=== PATIENT | female | born 1980 | race Caucasian/White ===

== ENCOUNTER → 2020-08-27 09:28 | Outpatient (CLI) | payer SELFPAY | PROVIDERS: Visit Provider Physician Assistant | DX: R30.0 Dysuria (principal) | CPT/HCPCS: 87086 ==

== ENCOUNTER → 2020-12-30 18:30 | Outpatient (CLI) | payer OTHER, SELFPAY ==
[2020-12-30 19:49] LABS: COVID19 -Nasal RAPID Negative (Negative)
== END ==
PROVIDERS: Visit Provider Physician Assistant
DX: Z20.822 Contact with and (suspected) exposure to COVID-19 (principal)
CPT/HCPCS: 87635

== ENCOUNTER → 2021-03-02 07:58 | Outpatient (CLI) | payer OTHER, SELFPAY ==
[2021-03-02 08:41] LABS: COVID19 -Nasal RAPID Negative (Negative)
== END ==
PROVIDERS: Visit Provider Physician Assistant
DX: Z20.822 Contact with and (suspected) exposure to COVID-19 (principal); R05.9 Cough, unspecified; R09.81 Nasal congestion
CPT/HCPCS: 87635

== ENCOUNTER 2021-08-28 11:00 | Emergency (ER) | payer OTHER, SELFPAY ==
[2021-08-28] VITALS (36 sets, daily range): BP systolic 109–136; BP diastolic 61–80; PULSE 67–94; RESP 11–25; TEMP 36.8; O2SAT 98–100; BMI 30.9
--- NOTE | 2021-08-28 11:04 | DI.CT.S_ITS ---
PROCEDURE: CT ANGIO HEAD AND NECK INDICATIONS: left eye hemniopsia TECHNIQUE: After the administration of intravenous contrast, 1 mm thick sections acquired from the aortic arch through the [place] of [place]. Post-contrast 4.5 mm thick sections then re-acquired from the foramen magnum to the vertex. For radiation dose reduction, the following was used: automated exposure control, adjustment of mA and/or kV according to patient size. COMPARISON: None. FINDINGS: HEAD CT ANGIOGRAPHY: Anterior circulation: Intracranial internal carotid arteries are normal in size and flow. The flow within the paired anterior cerebral arteries is normal and symmetric. The flow within the middle cerebral arteries is normal and symmetric. The anterior communicating artery is seen. No aneurysms are seen. Posterior circulation: Visualized portions of the vertebral arteries demonstrate normal caliber, and join to form a normal appearing basilar artery. Flow within the posterior cerebral arteries is normal and symmetric. No aneurysms are seen. NECK CT ANGIOGRAPHY: Carotid system: The great vessels demonstrate a conventional anatomy as they arise from the aortic arch. The origins of the common carotid arteries appear patent. The common carotid arteries demonstrate normal caliber and courses. The bifurcation regions are both widely patent. The internal carotid arteries demonstrate normal calibers and courses. Posterior circulation: The origins of the vertebral arteries both appear widely patent. The more superior extracranial portions of both vertebral arteries also demonstrate normal courses and calibers. They join to form a normal appearing basilar artery. Left vertebral artery arises directly from the aortic arch, an anatomic variant. Soft tissues: Visualized neck soft tissues demonstrate no suspicious abnormalities. Bones: No suspicious bony lesions. Visualized cervical spine appears normally aligned. IMPRESSION: Normal CT angiogram the head and neck without evidence of large vessel occlusion, aneurysm or vascular malformation. Any quantitative measurements of stenosis were performed using NASCET criteria. Approved by: Antonio Valentino M.D. on 08/28/2021 at 10:49
--- NOTE | 2021-08-28 11:04 | DI.CT.S_ITS ---
PROCEDURE: CT STROKE INDICATIONS: left eye hemianopia TECHNIQUE: Noncontrast 5 mm thick angled axial sections acquired from the foramen magnum to the vertex, with coronal reformats. For radiation dose reduction, the following was used: automated exposure control, adjustment of mA and/or kV according to patient size. COMPARISON: None. FINDINGS: Image quality: Excellent. CSF spaces: Basal cisterns are patent. No extra-axial fluid collections. Ventricles are normal in size and shape. Brain: No midline shift. No intracranial masses or hemorrhage. [place]mal[place]-white matter interface is normal. Skull and face: Calvarium and visualized facial bones are intact, without suspicious lesions. Sinuses: Visualized sinuses and mastoids are clear. IMPRESSION: Normal CT of the brain This study fulfills neurological imaging criteria for inclusion or exclusion of acute stroke therapies based on available published neurological imaging guidelines. Note: Critical results were discussed with Dr. Spencer at 10:42 AM [place] time on 08/28/21 Approved by: Antonio Valentino M.D. on 08/28/2021 at 10:42
[2021-08-28] MEDS: ONDANSETRON 4 MG/2 ML INJ IV (11:10)
[2021-08-28 11:11] LABS: Add Manual Diff / Slide Review NO; Basophils Absolute Auto 0 /uL (0-100); Basophils Percent Auto 0.3 % (0-2); Eosinophils Absolute Auto 200 /uL (0-450); Eosinophils Percent Auto 2.4 % (2-4); Hematocrit 36.4 % (36-46); Hemoglobin 12.6 g/dL (12.0-16.0); Lymphocytes Absolute Auto 2600 /uL (1100-4500); Lymphocytes Percent Auto 38.6 % (25-40); Mean Corpuscular HGB Conc 34.6 % (30-36); Mean Corpuscular Hemoglobin 30.9 PG (26-34); Mean Corpuscular Volume 89.3 fL (80-100); Monocytes Absolute Auto 600 /uL (0-900); Monocytes Percent Auto 9.8 % (3-14); Neutrophils Absolute Auto 3200 /uL (1500-7000); Neutrophils Percent Auto 48.9 % (50-75); Platelet Count 264 X10^3/uL (150-400); Red Blood Cell Count 4.08 X10^6/uL (4.0-5.2); Red Cell Distribution Width 13.4 % (11.6-14.8); White Blood Cell Count 6.6 X10^3/uL (4.5-11.0)
[2021-08-28 11:24] LABS: Alanine Aminotransferase 29 IU/L (<35); Albumin 4.2 g/dL (3.5-5.0); Albumin Globulin Ratio 1.3 (1.0-2.8); Alkaline Phosphatase 56 U/L (38-126); Aspartate Aminotransferase 38 IU/L (14-36); BUN Creatinine Ratio 16.7 (6-22); Bilirubin Total 0.5 mg/dL (0.2-1.3); Blood Urea Nitrogen 15 mg/dL (7-17); Calcium 8.7 mg/dL (8.4-10.2); Carbon Dioxide 25 mmol/L (22-32); Chloride 105 mmol/L (98-107); Creatine Kinase 72 U/L (30-135); Estimated Glomerular Filt Rate > 60 mL/min (>60); Globulin 3.2 g/dL (1.7-4.1); Glucose 135 mg/dL (70-100); HEMOLYSIS 40 (0-50); Potassium 3.5 mmol/L (3.4-5.1); Sodium 137 mmol/L (137-145); Total Protein 7.4 g/dL (6.3-8.2)
[2021-08-28] MEDS: SODIUM CHLORIDE 0.9% 1,000 ML 150 ML IV (11:32)
--- NOTE | 2021-08-28 11:34 | ED_ITS ---
HPI - Neuro Symptoms/Deficit General Chief Complaint: Neuro Symptoms/Deficit Stated Complaint: eye/stroke problems Time Seen by Provider: 08/28/21 11:03 Source: patient Mode of arrival: Family Vehicle History of Present Illness HPI Narrative: Patient is a healthy 41-year-old female who presents with left eye blurry vision. She states that there is a line down the center of her vision and blurry peripherally. She does not have loss of vision. She does not have headache. She is currently at work while this is happening. She says she just feels off and can not place finger on it. She was previously feeling well. No fever chills. No chest pain or palpitations. No numbness tingling or weakness. She denies any flashers or floaters no lightening rods On Anticoagulants: No Related Data Previous Rx's Medication Instructions Recorded meclizine 25 mg tablet 25 mg PO TID PRN #10 tab 08/28/21 Allergies Allergy/AdvReac Type Severity Reaction Status Date / Time Cephalosporins Allergy Severe Anaphylaxis Verified 12/30/20 18:34 Penicillins Allergy Severe Anaphylaxis Verified 12/30/20 18:34 Sulfa (Sulfonamide Allergy Intermediate Rash Verified 12/30/20 18:34 Antibiotics) Review of Systems Review of Systems Narrative: GENERAL: Denies chills, fatigue, malaise, fever, sweats, travel HEENT: See HPI RESPIRATORY: Denies dyspnea, cough, wheezing, hemoptysis, sputum. CARDIOVASCULAR: Denies chest pain, palpitations, orthopnea, edema GASTROINTESTINAL: Denies nausea, vomiting, abdominal pain, diarrhea, constipation, melena. : Denies dysuria, frequency, incontinence, hematuria, urinary retention, flank pain. MUSCULOSKELETAL: Denies weakness, joint pain, or bony pain SKIN: No rash, no erythema, no pruritus NEUROLOGIC: See HPI PSYCHIATRIC: No concerning psychosocial issues. 12 point review of systems is negative except for those stated above and HPI Hematologic/Lymphatic On Anticoagulants: No Patient History Medical History No active medical problems Social History Smoking Status: Never smoker Smoking Status: Never smoker alcohol intake frequency: 0-2 drinks per day Substance Use Type: does not use Exam Initial Vital Signs Initial Vital Signs: Vital Signs Pulse Rate 89 08/28/21 11:04 Respiratory Rate 25 H 08/28/21 11:04 GENERAL: Alert well-appearing 41-year-old female and in no acute distress. HEENT: Head atraumatic,EOMI, pupils reactive, no nystagmus face symmetric, moist mucous membranes Bedside ophthalmology ultrasound done by myself does not show any obvious vitreous humor retinal detachment CARDIOVASCULAR: Regular rate and rhythm without murmurs, rubs or gallops. RESPIRATORY: Breath sounds equal bilaterally, no wheezes rales or rhonchi. ABDOMEN: Soft, nontender. Normoactive bowel sounds all 4 quadrants. No guarding or rebound. EXTREMITIES: Normal range of motion, no clubbing or edema. Neurovascularly intact NEUROLOGICAL: Alert and oriented x4.Normal gait and speech. Cranial nerves II through XII grossly intact. Good vaanpl-bl-ymoi, unable to do heel to arnold with right leg strength equal bilaterally, no dysarthria or aphasia, sensation in tact to soft touch bilaterally, no visual changes, no facial droop SKIN: Warm, dry, no laceration, no petechiae, no rashes or lesions. Scores NIH Stroke Scale Level of Conciousness: Alert, keenly responsive Ask month/age: Answers both questions correctly. Open/close eyes, close hand: Performs both tasks correctly Best gaze horizontal: Normal Visual byrne: Partial hemianopia (blurry not loss) Facial palsy: Normal symetrical movement Left arm drift: No drift for full 10 sec Right arm drift: No drift for full 10 sec Left leg drift: No drift for full 5 sec Right leg drift: No drift for full 5 sec Limb ataxia: Present in one limb Sensory on face/arms/legs: Normal, no sensory loss Best language: No aphasia, normal Dysarthria: Normal Extinction or inattention: No abnormality Total NIH Stroke scale score: 2 Course Orders Ordered: Discontinued Medications Sodium Chloride (Normal Saline 0.9%) 1,000 mls @ 150 mls/hr IV CONT JUSTYNA Last Infusion: 08/28/21 18:30 Dose: 0 mls/hr Documented by: Admin: 08/28/21 11:32 Dose: 150 mls/hr Documented by: BINH Meclizine HCl (Meclizine Hcl 12.5 Mg Tablet) 25 mg PO NOW ONE Stop: 08/28/21 11:47 Last Admin: 08/28/21 11:58 Dose: 25 mg Documented by: RENETTA Meclizine HCl (Meclizine Hcl 12.5 Mg Tablet) 25 mg PO NOW ONE Stop: 08/28/21 19:32 Last Admin: 08/28/21 19:42 Dose: 25 mg Documented by: BINH Ondansetron HCl (Ondansetron 4 Mg/2 Ml Inj) 4 mg IV NOW ONE Stop: 08/28/21 11:04 Last Admin: 08/28/21 11:10 Dose: 4 mg Documented by: BINH Vital Signs Vital signs: Vital Signs - 8 hr 08/28/21 11:21 Temperature 98.2 F Pulse Rate 84 Respiratory Rate 19 Blood Pressure 136/66 Pulse Oximetry 98 MDM - Neuro Symptoms/Deficit Lab Data Result diagrams: 08/28/21 11:02 08/28/21 11:02 Labs: Lab Results 08/28/21 08/28/21 08/28/21 Range/Units 11:02 11:02 11:02 WBC 6.6 (4.5-11.0) X10^3/uL RBC 4.08 (4.0-5.2) X10^6/uL Hgb 12.6 (12.0-16.0) g/dL Hct 36.4 (36-46) % MCV 89.3 (80-100) fL MCH 30.9 (26-34) PG MCHC 34.6 (30-36) % RDW 13.4 (11.6-14.8) % Plt Count 264 (150-400) X10^3/uL Neut % (Auto) 48.9 L (50-75) % Lymph % (Auto) 38.6 (25-40) % [place] % (Auto) 9.8 (3-14) % Eos % (Auto) 2.4 (2-4) % Baso % (Auto) 0.3 (0-2) % Neut # (Auto) 3200 (7054-0909) /uL Lymph # (Auto) 2600 (0743-5844) /uL [place] # (Auto) 600 (0-900) /uL Eos # (Auto) 200 (0-450) /uL Baso # (Auto) 0 (0-100) /uL Sodium 137 (137-145) mmol/L Potassium 3.5 (3.4-5.1) mmol/L Chloride 105 (98-107) mmol/L Carbon Dioxide 25 (22-32) mmol/L BUN 15 (7-17) mg/dL Creatinine 0.90 (0.52-1.04) mg/dL Estimated GFR > 60 (>60) mL/min BUN/Creatinine Ratio 16.7 (6-22) Glucose 135 H (70-100) mg/dL Calcium 8.7 (8.4-10.2) mg/dL Total Bilirubin 0.5 (0.2-1.3) mg/dL AST 38 H (14-36) IU/L ALT 29 (<35) IU/L Alkaline Phosphatase 56 (38-126) U/L Total Creatine Kinase 72 (30-135) U/L CK-MB (CK-2) TNP CK-MB (CK-2) Rel Index TNP Troponin I < 0.012 (0.01-0.034) ng/mL Total Protein 7.4 (6.3-8.2) g/dL Albumin 4.2 (3.5-5.0) g/dL Globulin 3.2 (1.7-4.1) g/dL Albumin/Globulin Ratio 1.3 (1.0-2.8) Serum , Qual Negative (Negative) Urine Color Urine Appearance Urine pH (4.5-8.0) Ur Specific [place] (1.000-1.035) Urine Protein (Negative) Urine Glucose (UA) (Negative) g/dL Urine Ketones (NEGATIVE) Urine Occult Blood (Negative) Urine Nitrate (Negative) Urine Bilirubin (NEGATIVE) Urine Urobilinogen (0.2) E.U./dL Ur Leukocyte Esterase (NEGATIVE) Urine RBC (0-5/HPF) Urine WBC (0-5/HPF) Ur Squamous Epith Cells (0-5/HPF) Urine Bacteria (None) Ur Culture Indicated? U Opiates 300ng/mL cut (Negative) Ur Oxycodone Screen (Negative) Urine Methadone Screen (Negative) Ur Barbiturates Screen (Negative) U Tricyclic Antidepress (Negative) Ur Phencyclidine Scrn (Negative) Ur Amphetamines Screen (Negative) U Methamphetamines Scrn (Negative) Ur MDMA Scrn (Ecstasy) (Negative) U Benzodiazepines Scrn (Negative) Urine Cocaine Screen (Negative) U Marijuana (THC) Screen (Negative) SARS-CoV-2 (PCR) (Negative) 08/28/21 08/28/21 08/28/21 Range/Units 11:02 11:40 13:18 WBC (4.5-11.0) X10^3/uL RBC (4.0-5.2) X10^6/uL Hgb (12.0-16.0) g/dL Hct (36-46) % MCV (80-100) fL MCH (26-34) PG MCHC (30-36) % RDW (11.6-14.8) % Plt Count (150-400) X10^3/uL Neut % (Auto) (50-75) % Lymph % (Auto) (25-40) % [place] % (Auto) (3-14) % Eos % (Auto) (2-4) % Baso % (Auto) (0-2) % Neut # (Auto) (1598-0310) /uL Lymph # (Auto) (7823-6762) /uL [place] # (Auto) (0-900) /uL Eos # (Auto) (0-450) /uL Baso # (Auto) (0-100) /uL Sodium (137-145) mmol/L Potassium (3.4-5.1) mmol/L Chloride (98-107) mmol/L Carbon Dioxide (22-32) mmol/L BUN (7-17) mg/dL Creatinine (0.52-1.04) mg/dL Estimated GFR (>60) mL/min BUN/Creatinine Ratio (6-22) Glucose (70-100) mg/dL Calcium (8.4-10.2) mg/dL Total Bilirubin (0.2-1.3) mg/dL AST (14-36) IU/L ALT (<35) IU/L Alkaline Phosphatase (38-126) U/L Total Creatine Kinase (30-135) U/L CK-MB (CK-2) CK-MB (CK-2) Rel Index Troponin I (0.01-0.034) ng/mL Total Protein (6.3-8.2) g/dL Albumin (3.5-5.0) g/dL Globulin (1.7-4.1) g/dL Albumin/Globulin Ratio (1.0-2.8) Serum , Qual (Negative) Urine Color Yellow Urine Appearance Clear Urine pH 7.0 (4.5-8.0) Ur Specific [place] <=1.005 (1.000-1.035) Urine Protein Negative (Negative) Urine Glucose (UA) Negative (Negative) g/dL Urine Ketones Negative (NEGATIVE) Urine Occult Blood Negative (Negative) Urine Nitrate Negative (Negative) Urine Bilirubin Negative (NEGATIVE) Urine Urobilinogen 0.2 (0.2) E.U./dL Ur Leukocyte Esterase Negative (NEGATIVE) Urine RBC None seen (0-5/HPF) Urine WBC 0-1/hpf (0-5/HPF) Ur Squamous Epith Cells 5-10 /hpf H (0-5/HPF) Urine Bacteria Few (2-10) H (None) Ur Culture Indicated? Cult not indicated U Opiates 300ng/mL cut Negative (Negative) Ur Oxycodone Screen Negative (Negative) Urine Methadone Screen Negative (Negative) Ur Barbiturates Screen Negative (Negative) U Tricyclic Antidepress Negative (Negative) Ur Phencyclidine Scrn Negative (Negative) Ur Amphetamines Screen Negative (Negative) U Methamphetamines Scrn Negative (Negative) Ur MDMA Scrn (Ecstasy) Negative (Negative) U Benzodiazepines Scrn Negative (Negative) Urine Cocaine Screen Negative (Negative) U Marijuana (THC) Screen Negative (Negative) SARS-CoV-2 (PCR) Negative (Negative) Point of Care Testing Glucose POC [address] scan - head: Radiologist's Impression: nt: Emily Mckinley MR#: [id number] : 1980 Acct:[id number] Age/Sex: 41 / F Date of Service: 08/28/21 Loc: ED Accession Number: [id number] ?? Procedure: CT Stroke Ordering Provider: Yessenia Spencer D.O. PROCEDURE:? CT STROKE ? INDICATIONS:? left eye hemianopia ? TECHNIQUE:? Noncontrast 5 mm thick angled axial sections acquired from the foramen magnum to the vertex, with coronal reformats.? For radiation dose reduction, the following was used:? automated exposure control, adjustment of mA and/or kV according to patient size.? ? COMPARISON:? None. ? FINDINGS:? Image quality:? Excellent.? ? CSF spaces:? Basal cisterns are patent.? No extra-axial fluid collections.? Ventricles are normal in size and shape.? ? Brain:? No midline shift.? No intracranial masses or hemorrhage.? [place]-white matter interface is normal.? ? Skull and face:? Calvarium and visualized facial bones are intact, without suspicious lesions.? ? Sinuses:? Visualized sinuses and mastoids are clear.? ? IMPRESSION:? Normal CT of the brain ? This study fulfills neurological imaging criteria for inclusion or exclusion of acute stroke therapies based on available published neurological imaging guidelines.? ? ? Note:? Critical results were discussed with Dr. Spencer at 10:42 AM [place] time on 08/28/21 ? Approved by: Antonio Valentino M.D. on 08/28/2021 at 10:42? CTA - brain/neck: Radiologist's Impression: atient: Emily Mckinley MR#: [id number] : 1980 Acct:[id number] Age/Sex: 41 / F Date of Service: 08/28/21 Loc: ED Accession Number: [id number] ?? Procedure: CT angio head and neck Ordering Provider: Yessenia Spencer D.O. PROCEDURE:? CT ANGIO HEAD AND NECK ? INDICATIONS:? left eye hemniopsia ? TECHNIQUE:? ? After the administration of intravenous contrast, 1 mm thick sections acquired from the aortic arch through the [place] of [place].? Post-contrast 4.5 mm thick sections then re-acquired from the foramen magnum to the vertex.? For radiation dose reduction, the following was used:? automated exposure control, adjustment of mA and/or kV according to patient size.? ? COMPARISON:? None. ? FINDINGS:? ? HEAD CT ANGIOGRAPHY:? Anterior circulation:? Intracranial internal carotid arteries are normal in size and flow.? The flow within the paired anterior cerebral arteries is normal and symmetric.? The flow within the middle cerebral arteries is normal and symmetric.? The anterior communicating artery is seen.? No aneurysms are seen.? ? Posterior circulation:? Visualized portions of the vertebral arteries demonstrate normal caliber, and join to form a normal appearing basilar artery.? Flow within the posterior cerebral arteries is normal and symmetric.? No aneurysms are seen.? ? NECK CT ANGIOGRAPHY:? Carotid system:? The great vessels demonstrate a conventional anatomy as they arise from the aortic arch.? The origins of the common carotid arteries appear patent.? The common carotid arteries demonstrate normal caliber and courses.? The bifurcation regions are both widely patent.? The internal carotid arteries demonstrate normal calibers and courses.? ? Posterior circulation:? The origins of the vertebral arteries both appear widely patent.? The more superior extracranial portions of both vertebral arteries also demonstrate normal courses and calibers.? They join to form a normal appearing basilar artery.? Left vertebral artery arises directly from the aortic arch, an anatomic variant. ? Soft tissues:? Visualized neck soft tissues demonstrate no suspicious abnormalities.? ? Bones:? No suspicious bony lesions.? Visualized cervical spine appears normally aligned.? IMPRESSION:? ? Normal CT angiogram the head and neck without evidence of large vessel occlusion, aneurysm or vascular malformation. ? Any quantitative measurements of stenosis were performed using NASCET criteria.? Approved by: Antonio Valentino M.D. on 08/28/2021 at 10:49? MR head: Radiologist's Impression: tient: Emily Mckinley MR#: [id number] : 1980 Acct:[id number] Age/Sex: 41 / F Date of Service: 08/28/21 Loc: ED Accession Number: [id number] ?? Procedure: MR head/brain wo con Ordering Provider: Yessenia Spencer D.O. PROCEDURE:? MR HEAD/BRAIN WO CON ? INDICATIONS:? right leg weakness, dizzy ? TECHNIQUE:? Noncontrast axial T1 spin echo, axial T2 fast spin echo, sagittal and axial FLAIR, coronal T2 fast spin echo, axial gradient echo, axial diffusion and ADC through the brain.? ? COMPARISON:? [facility], CT, CT ANGIO HEAD AND NECK, 08/28/2021, 11:10. ? FINDINGS:? Image quality:? Excellent.? ? CSF Spaces:? Basal cisterns are patent.? No extra-axial fluid collections.? Ventricles are normal in size and shape.? ? Brain:? No intracranial masses or hemorrhage.? [place]/white matter interface is normal.? Brainstem appears normal.? Diffusion-weighted images demonstrate no acute ischemic insult.? No chronic ischemic insults.? Normal intravascular flow voids are pre sent.? ? Skull and face:? Calvarium has normal marrow signal.? Orbits appear normal.? ? Sinuses:? Sinuses and mastoids are clear.? ? IMPRESSION:? Unremarkable brain MRI.? Normal brain parenchyma.? No evidence of acute stroke, hemorrhage, or mass. ? ? Dictated by: Prasanth Fallon M.D. on 08/28/2021 at 16:48 ? ? Approved by: Prasanth Fallon M.D. on 08/28/2021 at 16:49? ECG Data Interpretation: Normal sinus rhythm rate 79 FL interval 140 QRS [address] changes or T- wave inversions no priors to come MDM Narrative Medical decision making narrative: Patient's symptoms are a bit she does not have loss of vision but there is a vertical line in her visual field that is blurry. She is also having some ataxia and dysmetria specially in her right leg. She suddenly actually started feeling extremely dizzy as well. Concern for possible posterior CVA.. Head CT and CT angio were both negative 1130 Dr Leonardo, stroke doctor has been updated patient's symptoms test results reviewed scans. At this time does not recommend tPA symptoms are a bit odd possibly atypical migraine. Recommends treating migraine, re-evaluate and possible MRI Patient does not really want anything for pain. She is given meclizine and Zofran. She says it makes her sleepy. She continues to have some ataxia. Fortunately MRI is negative. She is able to stand now feels significantly better but still a little bit off. Probably vertigo atypical migraine. She is given meclizine to go home. Discharge Plan Departure Patient Disposition: Home Clinical Impression: Vertigo, Atypical migraine Instructions: Vertigo, Migraine -- Adult Activity Restrictions/Additional Instructions: *You have been diagnosed with vertigo, atypical migraine *What to do: You need to take the next few days off work. You need to rest. You need to take care of yourself. You need to go on a hike. *Continue to take medications as directed Meclizine 25 mg every 8 hours if needed for dizziness Zofran as directed *Follow up with your primary care provider in 2-3 days or call [phone] *Return to ER if you should have persistent vertigo, numbness, tingling, weakness, persistent vomiting or any new, worsening or concerning symptoms Prescriptions: New meclizine 25 mg tablet 25 mg PO TID PRN (Reason: dizziness) Qty: 10 0RF Referrals: Jossy Tyson MD [Primary Care Provider] -
[2021-08-28 11:36] LABS: Pregnancy Test Serum,Qual Negative (Negative); Troponin I < 0.012 ng/mL (0.01-0.034)
[2021-08-28] MEDS: MECLIZINE HCL 12.5 MG TABLET 25 MG PO ×2 (11:58→19:42)
[2021-08-28 12:00] LABS: UR Morphine/Opiate cutoff 300 Negative (Negative); Ur Creatinine Normal (Normal); Ur Specific Gravity Normal (Normal); Urine Amphetamines Negative (Negative); Urine Barbiturates Negative (Negative); Urine Benzodiazepines Negative (Negative); Urine Cocaine Negative (Negative); Urine MDMA Negative (Negative); Urine Methadone Negative (Negative); Urine Methamphetamines Negative (Negative); Urine Oxycodone Negative (Negative); Urine Phencyclidine Negative (Negative); Urine Tetrahydrocannabinol Negative (Negative); Urine Tricyclic Antidepressant Negative (Negative); Urine pH Normal (Normal)
[2021-08-28 12:56] LABS: Appearance Urine UA CLEAR; Bilirubin Urine UA NEGATIVE (NEGATIVE); Color Urine UA YELLOW; Glucose Urine UA NEGATIVE (Negative); Ketones Urine UA NEGATIVE (NEGATIVE); Leukocyte Esterase Urine UA NEGATIVE (NEGATIVE); Nitrite Urine UA NEGATIVE (Negative); Occult Blood Urine UA NEGATIVE (Negative); Protein Urine UA NEGATIVE (Negative); Specific Gravity Urine UA <=1.005 (1.000-1.035); Urobilinogen Urine UA 0.2 E.U./dL (0.2)
[2021-08-28 13:02] LABS: Bacteria Urine Few (2-10); Culture Indicated Urine Cult Not Indicated; RBC Urine None Seen (0-5/HPF); Squamous Epithelial Cell Urine 5-10 /HPF (0-5/HPF); WBC Urine 0-1/HPF (0-5/HPF)
[2021-08-28 13:42] LABS: COVID19 -Nasal RAPID Negative (Negative)
--- NOTE | 2021-08-28 13:51 | DI.MRI.S_ITS ---
PROCEDURE: MR HEAD/BRAIN WO CON INDICATIONS: right leg weakness, dizzy TECHNIQUE: Noncontrast axial T1 spin echo, axial T2 fast spin echo, sagittal and axial FLAIR, coronal T2 fast spin echo, axial gradient echo, axial diffusion and ADC through the brain. COMPARISON: [facility], CT, CT ANGIO HEAD AND NECK, 08/28/2021, 11:10. FINDINGS: Image quality: Excellent. CSF Spaces: Basal cisterns are patent. No extra-axial fluid collections. Ventricles are normal in size and shape. Brain: No intracranial masses or hemorrhage. [place]/white matter interface is normal. Brainstem appears normal. Diffusion-weighted images demonstrate no acute ischemic insult. No chronic ischemic insults. Normal intravascular flow voids are present. Skull and face: Calvarium has normal marrow signal. Orbits appear normal. Sinuses: Sinuses and mastoids are clear. IMPRESSION: Unremarkable brain MRI. Normal brain parenchyma. No evidence of acute stroke, hemorrhage, or mass. Dictated by: Prasanth Fallon M.D. on 08/28/2021 at 16:48 Approved by: Prasanth Fallon M.D. on 08/28/2021 at 16:49
== END 2021-08-28 19:45 | disposition home or self-care (01) ==
PROVIDERS: Emergency Provider Emergency Medicine; PCP Student in an Organized Health Care Education/Training Program
DX: G43.009 Migraine without aura, not intractable, without status migrainosus (principal); R42 Dizziness and giddiness; Z20.822 Contact with and (suspected) exposure to COVID-19
CPT/HCPCS: 36415; 70450; 70496; 70498; 70551; 80053; 80305; 81001; 82550; 82962; 84484; 84703; 85025; 87635; 93005; 93010; 96361; 96374; 99285; C9803; Q3014; J2405; Q9967

== ENCOUNTER → 2021-10-30 06:49 | Outpatient (CLI) | payer OTHER, SELFPAY ==
[2021-10-30 15:26] LABS: Clostridium Difficile Tox PCR Negative for C. diff (Negative)
== END ==
PROVIDERS: PCP Student in an Organized Health Care Education/Training Program; Referring Provider Family Medicine; Visit Provider Family Medicine
DX: R19.7 Diarrhea, unspecified (principal)
CPT/HCPCS: 87045; 87329; 87493; 87899

== ENCOUNTER 2022-05-15 13:06 | Emergency (ER) | payer OTHER, SELFPAY ==
[2022-05-15 13:10] VITALS: BP 127/79; PULSE 74; RESP 16; TEMP 37.1; O2SAT 99; BMI 28.3
[2022-05-15 15:00] LABS: Alanine Aminotransferase 22 IU/L (<35)
--- NOTE | 2022-05-15 15:13 | ED.GENADULT ---
HPI - General Adult <Charlene Glaser PA-C - Last Filed: 05/15/22 16:53> General Chief complaint: Blood/Body fluid exposure Stated complaint: Needle Poke Time Seen by Provider: 05/15/22 13:14 Source: patient Mode of arrival: Ambulatory History of Present Illness HPI narrative: Patient is presenting for evaluation of IV needle stick. She reports that when withdrawing the IV needle the safety button was stuck and she inadvertently stuck the lateral side of her right thumb. She says that she washed it with soap and water afterwards and squeeze some blood out of it. Blood has been drawn on the source patient to check for hepatitis-B in addition to HIV. Are patient reports she has been vaccinated with hepatitis-B, and was reactive to it. We have drawn her hepatitis-B levels as well as HIV. She reports allergies to penicillin cephalosporins, and she can not take Triptan. She reports minor pain in her thumb from the needlestick, but she says it is not interfering with her work. Related Data Previous Rx's Medication Instructions Recorded meclizine 25 mg tablet 25 mg PO TID PRN dizziness #10 tabs 08/28/21 Allergies Allergy/AdvReac Type Severity Reaction Status Date / Time Cephalosporins Allergy Severe Anaphylaxis Verified 12/30/20 18:34 Penicillins Allergy Severe Anaphylaxis Verified 12/30/20 18:34 Sulfa (Sulfonamide Allergy Intermediate Rash Verified 12/30/20 18:34 Antibiotics) Review of Systems <Charlene Glaser PA-C - Last Filed: 05/15/22 16:53> Review of Systems Narrative: per HPI Patient History <ANDREI Benson Last Filed: 05/15/22 16:53> Medical History No active medical problems Social History Smoking Status: Never smoker Smoking Status: Never smoker alcohol intake frequency: 0-2 drinks per day Substance Use Type: does not use Exam <Charlene Glaser PA-C - Last Filed: 05/15/22 16:53> Narrative Exam Narrative: GENERAL: 42 year old patient appears stated age. Well-developed patient, in no distress. HEAD: Atraumatic. Normocephalic. EYES: No scleral icterus. No injection or drainage. . NEURO: AOx3. SKIN: No rash or erythema of visible areas. Small puncture in lateral side of right thumb. No bleeding at present time. Initial Vital Signs Initial Vital Signs: Vital Signs Temperature 98.7 F 05/15/22 13:10 Pulse Rate 74 05/15/22 13:10 Respiratory Rate 16 05/15/22 13:10 Blood Pressure 127/79 05/15/22 13:10 Pulse Oximetry 99 05/15/22 13:10 Oxygen Delivery Method 05/15/22 13:10 <Ryan Middleton DO - Last Filed: 05/15/22 17:47> Initial Vital Signs Initial Vital Signs: Vital Signs Temperature 98.7 F 05/15/22 13:10 Pulse Rate 74 05/15/22 13:10 Respiratory Rate 16 05/15/22 13:10 Blood Pressure 127/79 05/15/22 13:10 Pulse Oximetry 99 05/15/22 13:10 Oxygen Delivery Method 05/15/22 13:10 Course <Charlene Glaser PA-C - Last Filed: 05/15/22 16:53> Vital Signs Vital signs: Vital Signs - 8 hr 05/15/22 13:10 Temperature 98.7 F Pulse Rate 74 Respiratory Rate 16 Blood Pressure 127/79 Pulse Oximetry 99 Oxygen Delivery Method Room Air <Ryan Middleton DO - Last Filed: 05/15/22 17:47> Vital Signs Vital signs: Vital Signs - 8 hr 05/15/22 13:10 Temperature 98.7 F Pulse Rate 74 Respiratory Rate 16 Blood Pressure 127/79 Pulse Oximetry 99 Oxygen Delivery Method Room Air Medical Decision Making <Charlene Glaser PA-C - Last Filed: 05/15/22 16:53> Lab Data Labs: Lab Results 05/15/22 05/15/22 Range/Units 14:08 14:08 ALT 22 (<35) IU/L Hep Bs Antigen Negative (NEGATIVE) s/c Hepatitis C Antibody Negative (NEGATIVE) s/c HIV 1&2 Ab/P24 Ag 4thGn Negative (NEGATIVE) MDM Narrative Medical decision making narrative: Reviewed incident with patient. She appears in good health overall. She has been vaccinated for hepatitis-B with good response. We are testing for hep B and hep C and HIV in source patient as well as for Ms. Mckinley. Wound has been cleaned with soap and water. Pending results we will start nPEP treatment if needed to reduce risk of infection within 72 hours. She is aware that her baseline for HIV and B and C status is negative. We will notify her of source patient results as soon as we have them. <Ryan Middleton DO - Last Filed: 05/15/22 17:47> Lab Data Labs: Lab Results 05/15/22 05/15/22 Range/Units 14:08 14:08 ALT 22 (<35) IU/L Hep Bs Antigen Negative (NEGATIVE) s/c Hepatitis C Antibody Negative (NEGATIVE) s/c HIV 1&2 Ab/P24 Ag 4thGn Negative (NEGATIVE) Discharge Plan Departure Patient Disposition: Home Clinical Impression: Adverse exposure in workplace, Needlestick injury accident with exposure to body fluid Instructions: DI for Accidental Exposure to Body Fluids Activity Restrictions/Additional Instructions: We have discussed risk factors for hepatitis-B hepatitis-C and HIV after this exposure. We are awaiting results from source patient to to know what steps to take next. Treatment could include taking retrovirals if source patient is positive for the above conditions. These retrovirals are recommended to be started within 72 hours of exposure. Prescriptions: No Action meclizine 25 mg tablet 25 mg PO TID PRN (Reason: dizziness) Qty: 10 0RF Referrals: Jossy Tyson MD [Primary Care Provider] - Stand Alone Forms: Patient Portal/API <Ryan Middleton DO - Last Filed: 05/15/22 17:47> Cosign ED Attending Cosignature Attestation: Dr Middleton Co-Sign Statement: I was available for consultation during this patient's emergency department visit. This chart is signed by myself for administrative purposes only. I did not have direct contact with this patient during this visit. They were seen independently by the APC.
[2022-05-15 15:21] LABS: Hepatitis B Surface Antigen NEGATIVE s/c (NEGATIVE)
[2022-05-15 15:34] LABS: HIV 1 & 2 Ab/Ag 4th Gen Combo NEGATIVE (NEGATIVE); Hep C Virus Ab w/Reflex Quant NEGATIVE s/c (NEGATIVE)
[2022-05-17 07:08] LABS: Hepatitis B Surf Ab Qualitativ Reactive (.)
== END 2022-05-15 17:56 | disposition home or self-care (01) ==
PROVIDERS: Emergency Provider Physician Assistant; PCP Student in an Organized Health Care Education/Training Program
DX: Z77.21 Contact with and (suspected) exposure to potentially hazardous body fluids (principal); W46.1XXA Contact with contaminated hypodermic needle, initial encounter; Y99.0 Civilian activity done for income or pay
CPT/HCPCS: 36415; 99283

== ENCOUNTER 2022-05-20 09:42 | Emergency (ER) | payer OTHER, SELFPAY ==
[2022-05-20] VITALS (11 sets, daily range): BP systolic 110–136; BP diastolic 57–93; PULSE 85–97; RESP 16; TEMP 36.7; O2SAT 98–100; BMI 28.3
[2022-05-20] MEDS: ONDANSETRON 4 MG/2 ML INJ IV (10:06)
[2022-05-20] MEDS: SODIUM CHLORIDE 0.9% 1,000 ML 1000 ML IV ×2 (10:07→12:30)
[2022-05-20 11:08] LABS: RBC Urine None Seen (0-5/HPF); WBC Urine None Seen (0-5/HPF)
[2022-05-20 11:09] LABS: Bacteria Urine Moderate (10-30); Culture Indicated Urine Specimen Cultured; Mucus Urine 1+ (Negative)
[2022-05-20 11:31] LABS: Add Manual Diff / Slide Review NO; Basophils Absolute Auto 0 /uL (0-100); Basophils Percent Auto 0.4 % (0-2); Eosinophils Absolute Auto 100 /uL (0-450); Eosinophils Percent Auto 0.8 % (2-4); Hematocrit 42.5 % (36-46); Lymphocytes Absolute Auto 700 /uL (1100-4500); Lymphocytes Percent Auto 5.7 % (25-40); Mean Corpuscular HGB Conc 32.9 % (30-36); Mean Corpuscular Hemoglobin 29.3 PG (26-34); Mean Corpuscular Volume 89.1 fL (80-100); Monocytes Absolute Auto 500 /uL (0-900); Monocytes Percent Auto 3.9 % (3-14); Neutrophils Absolute Auto 10500 /uL (1500-7000); Neutrophils Percent Auto 89.2 % (50-75); Platelet Count 310 X10^3/uL (150-400); Red Blood Cell Count 4.77 X10^6/uL (4.0-5.2); Red Cell Distribution Width 13.9 % (11.6-14.8); White Blood Cell Count 11.8 X10^3/uL (4.5-11.0)
[2022-05-20 11:32] LABS: Alanine Aminotransferase 26 IU/L (<35); Albumin 4.4 g/dL (3.5-5.0); Albumin Globulin Ratio 1.3 (1.0-2.8); Alkaline Phosphatase 92 U/L (38-126); Aspartate Aminotransferase 30 IU/L (14-36); Bilirubin Total 0.8 mg/dL (0.2-1.3); Blood Urea Nitrogen 16 mg/dL (7-17); Calcium 8.7 mg/dL (8.4-10.2); Carbon Dioxide 24 mmol/L (22-32); Chloride 104 mmol/L (98-107); Estimated Glomerular Filt Rate > 60 mL/min (>60); Globulin 3.5 g/dL (1.7-4.1); Glucose 121 mg/dL (70-100); HEMOLYSIS < 15 (0-50); Lipase 75 U/L (23-300); Sodium 138 mmol/L (137-145); Total Protein 7.9 g/dL (6.3-8.2)
--- NOTE | 2022-05-20 11:40 | ED_ITS ---
HPI - Nausea/Vomiting/Diarrhea General Chief complaint: Nausea/Vomiting/Diarrhea Stated complaint: throwing up/abd pain Time Seen by Provider: 05/20/22 11:19 Source: patient Mode of arrival: Ambulatory Limitations: no limitations History of Present Illness HPI Narrative: This is a 42-year-old female with known history of migraines who presents with nausea vomiting and diarrhea starting abruptly overnight. Patient states similar cramping just before diarrheal episodes. No black or bloody stools. No fevers, no chest pain or shortness of breath. Patient tried Zofran and Phenergan orally at home without any improvement. No syncope but did feel lightheaded. Patient denies dysuria urgency or frequency. No flank pain appreciated. 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 Patient states they have had cholecystectomy and appendectomy. Allergy to cephalosporins, penicillin and sulfa, also has adverse reaction to triptans. Patient has not been having frequent or persistent symptoms. Related Data Previous Rx's Medication Instructions Recorded meclizine 25 mg tablet 25 mg PO TID PRN dizziness #10 tabs 08/28/21 promethazine 25 mg rectal 25 mg UT Q6H PRN nausea and 05/20/22 suppository vomiting #12 ea Allergies Allergy/AdvReac Type Severity Reaction Status Date / Time Cephalosporins Allergy Severe Anaphylaxis Verified 12/30/20 18:34 Penicillins Allergy Severe Anaphylaxis Verified 12/30/20 18:34 Sulfa (Sulfonamide Allergy Intermediate Rash Verified 12/30/20 18:34 Antibiotics) Review of Systems Review of Systems ROS Unobtainable: All systems reviewed & are unremarkable except as noted in HPI and below Patient History Medical History No active medical problems Social History Smoking Status: Never smoker Smoking Status: Never smoker alcohol intake frequency: 0-2 drinks per day Substance Use Type: does not use Exam Narrative Exam Narrative: GENERAL: Alert and oriented x three, female in mild distress. HEENT: Head normocephalic, atraumatic, EOMI, pupils reactive, face symmetric, moist mucous membranes NECK: Supple, full range of motion CARDIOVASCULAR: Regular rate and rhythm without murmurs, rubs or gallops. RESPIRATORY: Breath sounds equal bilaterally, no wheezes rales or rhonchi. ABDOMEN: Soft, mild generalized tenderness. Normoactive bowel sounds all 4 quadrants. No guarding or rebound, rigidity, no mass : No CVA tenderness EXTREMITIES: Normal range of motion, no clubbing or edema. Neurovascularly intact NEUROLOGICAL: Cranial nerves II through XII grossly intact. Moving all extremities SKIN: Warm, dry, no petechiae, no rashes or lesions. Initial Vital Signs Initial Vital Signs: Vital Signs Blood Pressure 136/93 H 05/20/22 09:46 Course Orders Ordered: ED Orders 05/20/22 09:53 CBC Auto Diff [Complete Blood Count AUTO DIFF] Stat CMP [Comprehensive Metabolic Panel] Stat Lipase Stat 05/20/22 10:45 Urine Culture Stat Urine Microscopic Stat 05/20/22 12:31 GI Panel (Film Array) Stat Discontinued Medications Sodium Chloride (Normal Saline 0.9%) 1,000 mls @ 1,000 mls/hr IV BOLUS ONE Stop: 05/20/22 10:52 Last Infusion: 05/20/22 10:53 Dose: 0 mls/hr Documented By: Admin: 05/20/22 10:07 Dose: 1,000 mls/hr Documented By: MARGA Sodium Chloride (Normal Saline 0.9%) 1,000 mls @ 1,000 mls/hr IV BOLUS ONE Stop: 05/20/22 13:36 Last Infusion: 05/20/22 13:52 Dose: 0 mls/hr Documented By: Admin: 05/20/22 12:30 Dose: 1,000 mls/hr Documented By: NR Ketorolac Tromethamine (Ketorolac 30 Mg/Ml Vial) 15 mg IV NOW ONE Stop: 05/20/22 11:42 Last Admin: 05/20/22 12:04 Dose: 15 mg Documented By: NR Metoclopramide HCl (Metoclopramide 10 Mg/2 Ml Inj) 10 mg IV NOW ONE Stop: 05/20/22 11:41 Last Admin: 05/20/22 12:03 Dose: 10 mg Documented By: NR Ondansetron HCl (Ondansetron 4 Mg/2 Ml Inj) 4 mg IV NOW ONE Stop: 05/20/22 09:54 Last Admin: 05/20/22 10:06 Dose: 4 mg Documented By: MARGA Vital Signs Vital signs: Vital Signs - 8 hr 05/20/22 10:44 05/20/22 10:45 05/20/22 10:45 Pulse Rate 97 H 85 Blood Pressure 114/61 Pulse Oximetry 99 99 05/20/22 11:00 05/20/22 11:00 05/20/22 11:30 Pulse Rate 86 Blood Pressure 110/57 L 112/63 Pulse Oximetry 99 05/20/22 11:30 05/20/22 12:00 05/20/22 13:36 Pulse Rate 88 86 97 H Blood Pressure Pulse Oximetry 99 99 99 05/20/22 13:37 05/20/22 13:37 Pulse Rate 93 H Blood Pressure 115/65 Pulse Oximetry 99 MDM - Nausea/Vomiting/Diarrhea Lab Data 05/20/22 09:53 05/20/22 09:53 Labs: Lab Results 05/20/22 05/20/22 05/20/22 Range/Units 09:53 09:53 10:45 WBC 11.8 H (4.5-11.0) X10^3/uL RBC 4.77 (4.0-5.2) X10^6/uL Hgb 14.0 (12.0-16.0) g/dL Hct 42.5 (36-46) % MCV 89.1 (80-100) fL MCH 29.3 (26-34) PG MCHC 32.9 (30-36) % RDW 13.9 (11.6-14.8) % Plt Count 310 (150-400) X10^3/uL Neut % (Auto) 89.2 H (50-75) % Lymph % (Auto) 5.7 L (25-40) % [place] % (Auto) 3.9 (3-14) % Eos % (Auto) 0.8 L (2-4) % Baso % (Auto) 0.4 (0-2) % Neut # (Auto) 54945 H (1358-7102) /uL Lymph # (Auto) 700 L (0814-6488) /uL [place] # (Auto) 500 (0-900) /uL Eos # (Auto) 100 (0-450) /uL Baso # (Auto) 0 (0-100) /uL Sodium 138 (137-145) mmol/L Potassium 4.0 (3.4-5.1) mmol/L Chloride 104 (98-107) mmol/L Carbon Dioxide 24 (22-32) mmol/L BUN 16 (7-17) mg/dL Creatinine 0.84 (0.52-1.04) mg/dL Estimated GFR > 60 (>60) mL/min BUN/Creatinine Ratio 19.0 (6-22) Glucose 121 H (70-100) mg/dL Calcium 8.7 (8.4-10.2) mg/dL Total Bilirubin 0.8 (0.2-1.3) mg/dL AST 30 (14-36) IU/L ALT 26 (<35) IU/L Alkaline Phosphatase 92 (38-126) U/L Total Protein 7.9 (6.3-8.2) g/dL Albumin 4.4 (3.5-5.0) g/dL Globulin 3.5 (1.7-4.1) g/dL Albumin/Globulin Ratio 1.3 (1.0-2.8) Lipase 75 (23-300) U/L Urine RBC None seen (0-5/HPF) Urine WBC None seen (0-5/HPF) Urine Bacteria Moderate (10-30) H (None) Urine Mucus 1+ H (Negative) Ur Culture Indicated? Specimen cultured Stl C. cayetanensis PCR (Not Detect) Stool Rotavirus (PCR) (Not Detect) Stool Adenovirus (PCR) (Not Detect) Stool Astrovirus (PCR) (Not Detect) Stool Cryptosporidium PCR (Not Detect) Stl E.coli Shiga Tox PCR (Not Detect) St Sh/Enteroin Ecoli PCR (Not Detect) Stool E coli O157 PCR (Not Detect) Stl Enterotoxigenic E PCR (Not Detect) Stool EPEC (PCR) (Not Detect) Stl E. histolytica PCR (Not Detect) Stool Giardia Lamblia PCR (Not Detect) Stool Sapovirus (PCR) (Not Detect) Stl P. shigelloides PCR (Not Detect) St Y.enterocolitica PCR (Not Detect) Stool Vibrio (PCR) (Not Detect) Stl Vibrio cholerae PCR (Not Detect) Stl Enteroaggr Ecoli PCR (Not Detect) Stl Norovirus GI/GII PCR (Not Detect) Campylobacter (PCR) (Not Detect) C. difficile Tox (PCR) (Not Detect) Salmonella (PCR) (Not Detect) 05/20/22 Range/Units 12:31 WBC (4.5-11.0) X10^3/uL RBC (4.0-5.2) X10^6/uL Hgb (12.0-16.0) g/dL Hct (36-46) % MCV (80-100) fL MCH (26-34) PG MCHC (30-36) % RDW (11.6-14.8) % Plt Count (150-400) X10^3/uL Neut % (Auto) (50-75) % Lymph % (Auto) (25-40) % [place] % (Auto) (3-14) % Eos % (Auto) (2-4) % Baso % (Auto) (0-2) % Neut # (Auto) (8698-4659) /uL Lymph # (Auto) (5309-3015) /uL [place] # (Auto) (0-900) /uL Eos # (Auto) (0-450) /uL Baso # (Auto) (0-100) /uL Sodium (137-145) mmol/L Potassium (3.4-5.1) mmol/L Chloride (98-107) mmol/L Carbon Dioxide (22-32) mmol/L BUN (7-17) mg/dL Creatinine (0.52-1.04) mg/dL Estimated GFR (>60) mL/min BUN/Creatinine Ratio (6-22) Glucose (70-100) mg/dL Calcium (8.4-10.2) mg/dL Total Bilirubin (0.2-1.3) mg/dL AST (14-36) IU/L ALT (<35) IU/L Alkaline Phosphatase (38-126) U/L Total Protein (6.3-8.2) g/dL Albumin (3.5-5.0) g/dL Globulin (1.7-4.1) g/dL Albumin/Globulin Ratio (1.0-2.8) Lipase (23-300) U/L Urine RBC (0-5/HPF) Urine WBC (0-5/HPF) Urine Bacteria (None) Urine Mucus (Negative) Ur Culture Indicated? Stl C. cayetanensis PCR Not detected (Not Detect) Stool Rotavirus (PCR) Not detected (Not Detect) Stool Adenovirus (PCR) Not detected (Not Detect) Stool Astrovirus (PCR) Not detected (Not Detect) Stool Cryptosporidium PCR Not detected (Not Detect) Stl E.coli Shiga Tox PCR Not detected (Not Detect) St Sh/Enteroin Ecoli PCR Not detected (Not Detect) Stool E coli O157 PCR Not detected (Not Detect) Stl Enterotoxigenic E PCR Not detected (Not Detect) Stool EPEC (PCR) Not detected (Not Detect) Stl E. histolytica PCR Not detected (Not Detect) Stool Giardia Lamblia PCR Not detected (Not Detect) Stool Sapovirus (PCR) Not detected (Not Detect) Stl P. shigelloides PCR Not detected (Not Detect) St Y.enterocolitica PCR Not detected (Not Detect) Stool Vibrio (PCR) Not detected (Not Detect) Stl Vibrio cholerae PCR Not detected (Not Detect) Stl Enteroaggr Ecoli PCR Not detected (Not Detect) Stl Norovirus GI/GII PCR Detected H (Not Detect) Campylobacter (PCR) Not detected (Not Detect) C. 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 She has developed nausea vomiting and diarrhea overnight was having trouble keeping anything down even with Zofran and Phenergan and feeling lightheaded presented with overall appropriate labs, received fluids, antinausea medication dose of Toradol is feeling improved. Patient's urine did show moderate bacteria but not having any urinary symptoms. Patient is feeling much better discharged home while GI panel was pending and is positive for norovirus patient was updated. Discharge Plan Departure Patient Disposition: Home Clinical Impression: Nausea vomiting and diarrhea, Norovirus Activity Restrictions/Additional Instructions: Please follow-up if you are having worsening symptoms. Your GI panel is pending if you have not heard from us by 5:00 p.m. today give us a call to follow-up your results. You can take Phenergan 1 tablet suppository every 6 hours as needed. Prescription sent to [facility] Please return for new fevers increasing abdominal pain, persistent vomiting, black or bloody stools, passing out or other new or concerning changes. Prescriptions: New promethazine 25 mg suppository 25 mg UT Q6H PRN (Reason: nausea and vomiting) Qty: 12 0RF No Action meclizine 25 mg tablet 25 mg PO TID PRN (Reason: dizziness) Qty: 10 0RF Referrals: Jossy Tyson MD [Primary Care Provider] - Stand Alone Forms: Patient Portal/API
[2022-05-20] MEDS: METOCLOPRAMIDE 10 MG/2 ML INJ IV (12:03)
[2022-05-20] MEDS: KETOROLAC 30 MG/ML VIAL 15 MG IV (12:04)
[2022-05-20 14:58] LABS: Adenovirus F 40/41 Not Detected (Not Detect); Astrovirus Not Detected (Not Detect); Campylobacter Not Detected (Not Detect); Clostridium difficile toxin AB Not Detected (Not Detect); Cryptosporidium Not Detected (Not Detect); Cyclospora cayetanensis Not Detected (Not Detect); Entamoeba histolytica Not Detected (Not Detect); Enteroaggregative E.coli Not Detected (Not Detect); Enteropathogenic E.coli Not Detected (Not Detect); Enterotoxigenic E.coli It/st Not Detected (Not Detect); Giardia lamblia Not Detected (Not Detect); Norovirus GI/GII Detected (Not Detect); Plesiomonsa shigelloides Not Detected (Not Detect); Rotavirus A Not Detected (Not Detect); Salmonella Not Detected (Not Detect); Sapovirus Not Detected (Not Detect); Shiga-like toxin-prod E.coli Not Detected (Not Detect); Shigella/Enteroinvasive E.coli Not Detected (Not Detect); Vibrio Not Detected (Not Detect); Vibrio cholerae Not Detected (Not Detect); Yersinia enterocolitica Not Detected (Not Detect)
== END 2022-05-20 13:53 | disposition home or self-care (01) ==
PROVIDERS: Emergency Provider Emergency Medicine; PCP Student in an Organized Health Care Education/Training Program
DX: A08.11 Acute gastroenteropathy due to Norwalk agent (principal); R11.2 Nausea with vomiting, unspecified; R19.7 Diarrhea, unspecified
CPT/HCPCS: 36415; 80053; 81003; 81015; 83690; 85025; 87086; 87147; 87507; 96361; 96374; 96375; 99284; J1885; J2405; J2765